=== PATIENT | male | born 1995 | race Caucasian/White ===

== ENCOUNTER 2018-06-26 14:42 | Emergency (ER) | payer MEDICAID ==
[~2018-06-26] VITALS: Ht 170.2 cm; Wt 86.0 kg
[2018-06-26 15:04] VITALS: Ht 170.2 cm; Wt 86.0 kg
[2018-06-26] MEDS ORDERED: ONDANSETRON (ODT) 4 MG TAB ODT STA (15:27)
[2018-06-26] MEDS ORDERED: HYDROCODONE/APAP (5/325) TAB PO ONE (15:30)
[2018-06-26] MEDS ORDERED: KETOROLAC 60 MG INJ IM STA (16:41)
[2018-06-26] MEDS ORDERED: FIORICET PO (16:42)
[2018-06-26] MEDS ORDERED: IBUP-1542 PO (16:42)
--- NOTE | 2018-06-26 16:45 | ERD ---
ER Documentation Chief Complaint Chief Complaint SENT BY PMD FOR PRATT VS URI X 3 DAYS HPI 22-year-old male presents referred by primary doctor for evaluation for headache associated with URI symptoms and concern for meningitis. Patient's had a cough for last 3 days. The cough is actually improving. He had a fever initially but fevers resolved. He had a sudden onset of occipital headache while coughing 2 days ago. He is here for evaluation of occipital headache. Patient has no neck stiffness, weakness, deficits, vomiting, visual changes, fevers. ROS All systems reviewed and are negative except as per history of present illness. Medications Home Meds Active Scripts Acetamin/Butalbital/Caffeine* (Fioricet*) [id number] Tab, 1 TAB PO Q6H PRN for PAIN, #10 TAB Prov:SERGIO PONCE MD 06/26/18 Ibuprofen* (Motrin*) 600 Mg Tab, 600 MG PO Q6, #20 TAB Prov:SERGIO PONCE MD 06/26/18 Allergies Allergies: Coded Allergies: No Known Allergy (Unverified , 06/26/18) PMhx/Soc Medical and Surgical Hx: pt denies Medical Hx, pt denies Surgical Hx Hx Alcohol Use: No Hx Substance Use: No Hx Tobacco Use: No Smoking Status: Never smoker FmHx Family History: No diabetes, No coronary disease, No other Physical Exam Vitals Vital Signs Date Temp Pulse Resp B/P (MAP) Pulse Ox O2 O2 Flow FiO2 Time Delivery Rate 06/26/18 99.4 68 18 137/93 98 15:04 (108) Physical Exam Const: No acute distress Head: Atraumatic Eyes: Normal Conjunctiva ENT: Normal External Ears, Nose and Mouth. Neck: Full range of motion. No meningismus. There is mild reproducible headache with palpation of the C1 paraspinous area. Resp: Clear to auscultation bilaterally Cardio: Regular rate and rhythm, no murmurs Abd: Soft, non tender, non distended. Normal bowel sounds Skin: No petechiae or rashes Back: No midline or flank tenderness Ext: No cyanosis, or edema Neur: Awake and alert. Negative Kernig's and Brudzinski sign. Psych: Normal Mood and Affect Results 24 hrs Current Medications Medications Dose Sig/Chin Start Time Status Last (Trade) Ordered Route PRN Stop Time Admin Dose Reason Admin 1 tab ONCE ONCE 06/26/18 DC 06/26/18 Acetaminophen PO 15:30 15:33 / 06/26/18 15:31 Hydrocodone Bitart (Wesco (5/325)) Ondansetron 8 mg ONCE STAT 06/26/18 DC 06/26/18 HCl (Zofran ODT 15:27 15:33 Odt) 06/26/18 15:28 Ketorolac 60 mg ONCE STAT 06/26/18 DC Tromethamine IM 16:41 (Toradol) 06/26/18 16:42 Procedures/MDM Patient was given Wesco [address] brain was normal. Patient presents with occipital headache which appears to be a sudden onset after coughing, likely strain or pinched nerve. Current signs or symptoms do not suggest meningeal signs or ill appearance. He was given Toradol 60 mg IM and will be treated with ibuprofen, Fioricet, primary care follow-up and return precautions. The patient was stable with no new complaints during the ER course. Clinically, there is no current evidence to suggest meningitis, sepsis, acute abdomen, pneumonia, stroke, acute coronary syndrome, pulmonary embolism, aortic dissection or any other emergent condition appearing to require further evaluation or hospitalization. Patient counseled regarding my diagnostic impression and care plan. Prior to discharge all questions answered. Pt agrees with treatment plan and understands strict return precautions. Pt is instructed to follow up with primary care provider within 24-48 hours. Precautionary instructions provided including instructions to return to the ER if not improving or for any worsening or changing symptoms or concerns. Departure Diagnosis: Primary Impression: Headache Headache type: unspecified Headache chronicity pattern: acute headache Intractability: not intractable Qualified Codes: R51 - Headache Condition: Stable Patient Instructions: Headache, Unspecified, Uri, Viral, No Abx (Adult) Additional Instructions: CT normal. Suspect strain of neck or pinched nerve from coughing. Symptoms not consistent with meningitis. Recheck for new or worsening symptoms with primary care doctor. SERGIO PONCE MD Jun 26, 2018 16:45
[2018-06-26 16:52] VITALS: BP 139/86; PULSE 63; RESP 20
== END 2018-06-26 16:55 | disposition home or self-care (01) ==
LOC: FTE 14:42
DX: R51 Headache (principal)
CPT/HCPCS: 70450; 96372; J1885; Z7502; Z7610